=== PATIENT | male | born 1995 | race Two or more races ===

== ENCOUNTER 2023-04-19 17:05 | Emergency (ER) | payer SELFPAY ==
[~2023-04-19] VITALS: Ht 172.7 cm; Wt 77.3 kg
[2023-04-19 17:08] VITALS: BP 128/81; PULSE 80; RESP 16; TEMP 98.3
[2023-04-19] MEDS ORDERED: ONDA-104 PO (23:06)
[2023-04-19] MEDS ORDERED: ACET-3385 PO (23:06)
[2023-04-19] MEDS ORDERED: IBUP-1492 PO (23:06)
== END 2023-04-19 19:55 | disposition left against medical advice (07) ==
LOC: EMS 17:45
DX: K59.00 Constipation, unspecified (principal); F41.9 Anxiety disorder, unspecified; R51.9 Headache, unspecified; Z53.21 Procedure and treatment not carried out due to patient leaving prior to being seen by health care provider
CPT/HCPCS: 99281; Z7502

== ENCOUNTER 2023-04-19 20:11 | Emergency (ER) | payer SELFPAY ==
[~2023-04-19] VITALS: Ht 172.7 cm; Wt 77.3 kg
[2023-04-19 20:21] VITALS: TEMP 98.4
[2023-04-19 22:53] VITALS: BP 135/76; PULSE 96; RESP 18
[2023-04-19] MEDS ORDERED: ONDANSETRON HCL 4 MG TABLET PO ONE (23:00)
[2023-04-19] MEDS ORDERED: IBUPROFEN 600 MG TABLET PO ONE (23:00)
[2023-04-19] MEDS ORDERED: ONDA-104 PO (23:06)
[2023-04-19] MEDS ORDERED: ACET-3385 PO (23:06)
[2023-04-19] MEDS ORDERED: IBUP-1492 PO (23:06)
== END 2023-04-19 23:41 | disposition home or self-care (01) ==
LOC: EMS 20:11
DX: F11.93 Opioid use, unspecified with withdrawal (principal); F10.20 Alcohol dependence, uncomplicated; F17.210 Nicotine dependence, cigarettes, uncomplicated; Y90.9 Presence of alcohol in blood, level not specified
CPT/HCPCS: 99283; Q0162